=== PATIENT | female | born 1955 | race Caucasian/White ===

== ENCOUNTER → 2023-12-24 | Emergency (ER) | payer OTHER ==
[~2023-12-24] MED LIST: ACETAMINOPHEN 500 MG TAB ONE; MECLIZINE HCL 12.5 MG TAB ONE; TDAP (DIPHTH,PERTUSS(ACELL),TET VAC) 0.5 ML VIAL IMVAC ONE
--- NOTE | 2023-12-24 21:11 | RAD REPORT ---
EXAM DESCRIPTION: CT - Head C Spine Cap Wo Con - 12/24/2023 8:36 pm CLINICAL HISTORY: Head and neck injury with chest and abdominal pain status post fall TECHNIQUE: Computed axial tomography of head, neck, chest, abdomen and pelvis obtained. IV and oral contrast not requested. Coronal and sagittal reconstruction performed. All CT scans are performed using dose optimization technique as appropriate and may include automated exposure control or mA/KV adjustment according to patient size. COMPARISON: None FINDINGS: A right parietal scalp hematoma. An intracranial bleed is not seen. The ventricles are normal in caliber. An extra-axial fluid collection is not noted. Fluid within the sinuses/mastoids is not seen. A cervical fracture is not seen. No dislocation is noted. The evaluation of mediastinum, melani, vessels, solid organs and bowel are limited secondary to the lac k of contrast administration. A mediastinal hematoma is not noted. A pleural effusion is not seen. A lung contusion is not present. The liver,spleen, pancreas, adrenals,kidneys and bladder do not demonstrate an acute traumatic injury Small to moderate umbilical hernia IMPRESSION: No acute intracranial abnormality is seen. A cervical fracture is not visualized. If the patient continues to have symptoms to suggest intracran ial/spinal cord pathology MRI be recommended No acute traumatic abnormality involving the chest, abdomen or pelvis
--- NOTE | 2023-12-24 21:42 | EDPHYS ---
Physician Documentation [facility] Name: Georgia Dunn Age: 68 yrs Sex: Female : 1955 Arrival Date: 12/24/2023 Time: 18:57 Bed 11 Private MD: Jon Chao ED Physician Ronnie Lyles HPI: 12/23 20:05 This 68 yrs old Female presents to ER via Ambulatory with complaints of Head cp Injury-Adult. 20:05 The patient or guardian reports injury. cp 20:05 The complaints affect the right frontal area and right temporal area. cp 20:05 Context of injury: The problem was sustained at home, resulted from a fall, from a cp standing position. Onset: The symptoms/episode began/occurred 3 day(s) ago. Associated signs and symptoms: Pertinent positives: possible LOC and anterior chest pain. Historical: - Allergies: 19:07 No Known Allergies; km8 - Home Meds: 19:07 levothyroxine 100 mcg capsule [Active]; losartan-hydrochlorothiazide 100-25 mg oral km8 tablet [Active]; Vitamin D Oral [Active]; - PMHx: 19:07 Hypertensive disorder; Hypercholesterolemia; Hypothyroidism; km8 - PSHx: 19:07 Appendectomy; partial hysterectomy; Cholecystectomy; km8 - Immunization history:: Client reports receiving the 2nd dose of the Covid vaccine, Last tetanus immunization: unknown, Flu vaccine is up to date. - Social history:: Smoking status: Patient denies any tobacco usage or history of. Patient uses alcohol, on a daily basis. admits to "couple of beers" a day. Patient/guardian denies using street drugs. ROS: 20:10 Constitutional: Negative for body aches, fever, cp 20:10 Eyes: Negative for injury, pain, redness, and discharge, cp 20:10 Cardiovascular: Positive for chest pain, 20:10 Respiratory: Negative for shortness of breath, wheezing, 20:10 Abdomen/GI: Negative for abdominal pain, vomiting, diarrhea, constipation, 20:10 Neuro: Positive for dizziness, headache, Negative for altered mental status, weakness, 20:10 All other systems are negative, Exam: 20:15 Constitutional: The patient appears in no acute distress, alert, awake, cp non-diaphoretic, non-toxic, well developed, well nourished, obese, 20:15 Head/face: Noted is erythema, that is mild, of the right frontal area and right cp temporal area, swelling, that is mild, of the right frontal area and right temporal area, tenderness, scabbed over wound with no active bleeding noted. 20:15 Eyes: Periorbital structures: appear normal, Pupils: equal, round, and reactive to light and accomodation, Extraocular movements: intact throughout, Conjunctiva: normal, no exudate, no injection, Sclera: no appreciated abnormality, Lids and lashes: appear normal, bilaterally, 20:15 ENT: External ear(s): are unremarkable, Nose: is normal, Mouth: Lips: moist, Oral mucosa: pink and intact, moist, Posterior pharynx: is normal, airway is patent, no erythema, no exudate, 20:15 Neck: C-spine: vertebral tenderness, is not appreciated, crepitus, is not appreciated, ROM/movement: pain, that is mild, with any movement, limited range of motion, is not appreciated, Meningeal signs: are not present, nuchal rigidity, is not appreciated, 20:15 Chest/axilla: Inspection: normal, Palpation: crepitus, is not appreciated, tenderness, that is mild, of the anterior aspect of right upper chest, anterior aspect of left upper chest and mid-sternal area, 20:15 Cardiovascular: Rate: tachycardic, Rhythm: regular, Edema: is not appreciated, JVD: is not appreciated, 20:15 Respiratory: the patient does not display signs of respiratory distress, Respirations: normal, no use of accessory muscles, no retractions, labored breathing, is not present, Breath sounds: are clear throughout, no decreased breath sounds, no stridor, no wheezing, 20:15 Abdomen/GI: Inspection: abdomen appears normal, Palpation: abdomen is soft and non-tender, in all quadrants, 20:15 Back: vertebral tenderness, is not appreciated, 20:15 Musculoskeletal/extremity: Exam is negative for decreased range of motion, deformity, injury, 20:15 Neuro: Orientation: to person, place \\T\\ time. Mentation: is normal, Motor: is normal, Sensation: is normal, Gait: is steady, at a normal pace, without difficulty, Vital Signs: 19:06 BP 137 / 56; Pulse 113; Resp 18; Temp 98.5(O); Pulse Ox 91% on R/A; Weight 104.33 kg km8 (R); Height 5 ft. 1 in. (R); Pain 10/14; 21:51 BP 131 / 79; Pulse 98; Resp 18; Pulse Ox 100% on R/A; mb9 19:06 Body Mass Index 43.46 (104.33 kg, 154.94 cm) [facility] 19:06 Pain Scale: Adult 8 [place] Coma Score: 19:06 Eye Response: spontaneous(4). Motor Response: obeys commands(6). Verbal Response: km oriented(5). Total: 15. 20:05 Eye Response: spontaneous(4). Motor Response: obeys commands(6). Verbal Response: cp oriented(5). Total: 15. MDM: 19:13 Patient medically screened. cp 20:00 Differential diagnosis: Contusion of Hematoma on Laceration of Intracranial bleed- Concussion cerebral contusion, chest contusion, rib fracture. 21:40 Data reviewed: vital signs, nurses notes, radiologic studies, CT scan, and as a result, I will discharge patient. 21:40 I considered the following discharge prescriptions or medication management in the emergency department Medications were administered in the Emergency Department. See MAR. Counseling: I had a detailed discussion with the patient and/or guardian regarding the historical points, exam findings, and any diagnostic results supporting the discharge/admit diagnosis, radiology results, wound care. Special discussion: Based on the patient's history, exam, and Dx evaluation, there is no indication for emergent intervention or inpatient Tx. It is understood by the patient/guardian that if the Sx's persist or worsen they need to return immediately for re-evaluation. Based on the patient's history, exam and DX evaluation, there is no indication for emergent intervention or inpatient TX. It is understood by the patient/guardian that if the SXs persist or worsen they need to return immediately for re-evaluation. ED course: wound cleaned and dressed. will discharge to home for continued monitoring. 12/23 19:51 Order name: CT Traumagram (Head C Spine CAP wo con); Complete Time: 21:36 cp 12/23 21:37 Interpretation: Report reviewed. Administered Medications: 21:38 Drug: Tetanus Toxoid,Adsorbed IM 0.5 ml IM once; Provide Vaccine Information Statement jb4 (VIS). {Manager Shipping: [employer]; Exp: ThuOct 17 2025; Lot #: [id number]; Series: 1 of 1; Patient Consent: Obtained; Date/Time: ; Source Name: Georgia Dunn; Source Relationship: Self; Address Information: [place] [address]; ; Education: Provided; VIS Presented Date: ; VIS Publication: Tetanus/Diphtheria (Td) VIS 11/08/2013 (historic)} Route: IM; Site: right deltoid; 21:52 Follow up: Response: No adverse reaction mb9 21:38 Drug: Acetaminophen PO 1000 mg PO once Route: PO; jb4 21:52 Follow up: Response: No adverse reaction mb9 21:38 Drug: Meclizine PO 25 mg PO once Route: PO; jb4 21:52 Follow up: Response: No adverse reaction mb9 Disposition Summary: 12/24/23 21:41 Discharge Ordered Notes: Location: Home cp Problem: new cp Symptoms: have improved cp Condition: Stable cp Diagnosis - Fall on same level, unspecified cp - Unspecified open wound of scalp, initial encounter cp - Dizziness and giddiness cp - Chest pain, unspecified cp Followup: cp - With: Private Physician - When: 2 - 3 days - Reason: Worsening of condition Discharge Instructions: - Discharge Summary Sheet cp - Chest Wall Pain cp - Dizziness cp - Wound Infection cp - Wound Care, Adult cp Forms: - Medication Reconciliation Form cp - Thank You Letter cp - Antibiotic Education cp - Prescription Opioid Use cp - Patient Portal Instructions cp - Leadership Thank You Letter cp Prescriptions: - Cephalexin 500 mg Oral Capsule - take 1 capsule ORAL route every 8 hours for 10 days; 30 capsule; Refills: 0, cp Product Selection Permitted - Meclizine 25 mg Oral Tablet - take 1 tablet ORAL route every 8 hours As needed; 30 tablet; Refills: 0, cp Product Selection Permitted Signatures: Dispatcher [employer] EDRonnie Suero PA PA cp Bryson, James RN RN jb4 Maddie Zaldivar RN RN km8 Dahlia Andino RN mb9
--- NOTE | 2023-12-24 21:42 | ER ---
Nurse's Notes [facility] Name: Georgia Dunn Age: 68 yrs Sex: Female : 1955 Arrival Date: 12/24/2023 Time: 18:57 Bed 11 Private MD: Jon Chao Diagnosis: Fall on same level, unspecified;Unspecified open wound of scalp, initial encounter;Dizziness and giddiness;Chest pain, unspecified Presentation: 12/23 19:06 Chief complaint: Patient states: pt reports falling Thursday evening with unknown LOC, pt km8 noted to have a laceration to top right of head that is scabbing over with some "oozing still"; denies taking blood thinners. Coronavirus screen: Client denies travel out of the [place] in the last 14 days. Ebola Screen: No symptoms or risks identified at this time. Mechanism of Injury: resulted from a fall. Initial Sepsis Screen: Does the patient meet any 2 criteria? HR > 90 bpm. No. Patient's initial sepsis screen is negative. Does the patient have a suspected source of infection? No. Patient's initial sepsis screen is negative. Risk Assessment: Do you want to hurt yourself or someone else? Patient reports no desire to harm self or others. Onset of symptoms was December 21, 2023. 19:06 Method Of Arrival: Ambulatory km8 19:06 Acuity: DIMITRY 3 km8 Triage Assessment: 19:07 General: Appears in no apparent distress. comfortable, Behavior is calm, cooperative, km8 appropriate for age. Pain: Complains of pain in right frontal area Pain currently is 1 out of 10 on a pain scale. EENT: No signs and/or symptoms were reported regarding the EENT system. Neuro: Level of Consciousness is awake, alert, obeys commands, Oriented to person, place, time, situation, Reports dizziness. Cardiovascular: Denies chest pain, shortness of breath, Patient's skin is warm and dry. Respiratory: Airway is patent Respiratory effort is even, unlabored, Respiratory pattern is regular, symmetrical. GI: No signs and/or symptoms were reported involving the gastrointestinal system. : No signs and/or symptoms were reported regarding the genitourinary system. Derm: Skin is healthy with good turgor, Skin is dry, Skin is normal, Skin temperature is warm Wound noted right temporal area Wound is laceration. Musculoskeletal: No signs and/or symptoms reported regarding the musculoskeletal system. Range of motion: intact in all extremities. 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 - Social history:: Smoking status: Patient denies any tobacco usage or history of. Patient uses alcohol, on a daily basis. admits to "couple of beers" a day. Patient/guardian denies using street drugs. Screenin:[facility] ED Fall Risk Assessment (Adult) History of falling in the last 3 months, mb9 including since admission Yes- single mechanical fall (1 pt) Confusion or Disorientation No (0 pts) Intoxicated or Sedated No (0 pts) Impaired Gait No (0 pts) Mobility Assist Device Used No (0 pt) Altered Elimination No (0 pt) Score/Fall Risk Level 0 - 2 = Low Risk Oriented to surroundings, Maintained a safe environment, Educated pt \\T\\ family on fall prevention, incl call for assistance when getting out of bed. Abuse screen: Denies threats or abuse. Nutritional screening: No deficits noted. Tuberculosis screening: No symptoms or risk factors identified. Assessment: 21:50 General: Appears in no apparent distress. Behavior is calm, cooperative. Pain: mb9 Complains of pain in scalp. Neuro: Garcia Agitation-Sedation Scale (RASS): 0 - Alert and Calm Level of Consciousness is awake, alert, obeys commands, Oriented to person, place, time, situation, Appropriate for age. Neuro: Reports dizziness. Cardiovascular: Patient's skin is warm and dry. Respiratory: Airway is patent Respiratory effort is even, unlabored, Respiratory pattern is regular, symmetrical, Breath sounds are clear bilaterally. GI: No signs and/or symptoms were reported involving the gastrointestinal system. : No signs and/or symptoms were reported regarding the genitourinary system. EENT: No signs and/or symptoms were reported regarding the EENT system. Derm: Skin is pink, warm \\T\\ dry. Musculoskeletal: Range of motion: intact in all extremities. Injury Description: Abrasion sustained to scalp. Vital Signs: 19:06 BP 137 / 56; Pulse 113; Resp 18; Temp 98.5(O); Pulse Ox 91% on R/A; Weight 104.33 kg km8 (R); Height 5 ft. 1 in. (R); Pain 1/10; 21:51 BP 131 / 79; Pulse 98; Resp 18; Pulse Ox 100% on R/A; mb9 19:06 Body Mass Index 43.46 (104.33 kg, 154.94 cm) km8 19:06 Pain Scale: Adult km8 [place] Coma Score: 19:06 Eye Response: spontaneous(4). Motor Response: obeys commands(6). Verbal Response: km8 oriented(5). Total: 15. 20:05 Eye Response: spontaneous(4). Motor Response: obeys commands(6). Verbal Response: cp oriented(5). Total: 15. ED Course: 18:59 Patient arrived in ED. mr 19:00 Jon Chao MD is Private Physician. mr 19:07 Triage completed. km8 19:07 Arm band placed on right wrist. km8 19:10 Patient placed in waiting room, Patient notified of wait time. km8 19:13 Ronnie Su PA is PHCP. cp 19:13 Ronnie Lyles MD is Attending Physician. cp 20:37 CT Traumagram (Head C Spine CAP wo con) In Process Unspecified. EDMS 21:51 Patient has correct armband on for positive identification. Provided Education on: mb9 medications given. 21:51 No provider procedures requiring assistance completed. Patient did not have IV access mb9 during this emergency room visit. Administered Medications: 21:38 Drug: Tetanus Toxoid,Adsorbed IM 0.5 ml IM once; Provide Vaccine Information Statement jb4 (VIS). {Tube Maker: [employer]; Exp: ThuOct 17 2025; Lot #: [id number]; Series: 1 of ; Patient Consent: Obtained; Date/Time: ; Source Name: Georgia Dunn; Source Relationship: Self; Address Information: [address] [place], [place] [address] [address]; ; Education: Provided; VIS Presented Date: ; VIS Publication: Tetanus/Diphtheria (Td) VIS 11/08/2013 (historic)} Route: IM; Site: right deltoid; 21:52 Follow up: Response: No adverse reaction mb9 21:38 Drug: Acetaminophen PO 1000 mg PO once Route: PO; jb4 21:52 Follow up: Response: No adverse reaction mb9 21:38 Drug: Meclizine PO 25 mg PO once Route: PO; jb4 21:52 Follow up: Response: No adverse reaction mb9 Medication: 21:51 VIS not applicable for this client. mb9 Outcome: 21:41 Discharge ordered by MD. cp 21:51 Discharged to home ambulatory, mb9 21:51 Condition: stable 21:51 Discharge instructions given to patient, Instructed on discharge instructions, follow up and referral plans. Demonstrated understanding of instructions, follow-up care, medications, Prescriptions given X 2, 21:52 Patient left the ED. mb9 Signatures: Dispatcher [employer] EDMS Dahlia Montez, Ronnie De La Cruz PA PA cp Bryson, James, RN RN jb4 Dahlia Andino, RN RN mb9 Maddie Zaldivar RN RN km8
[2023-12-24 23:01] VITALS: BP 131/79; TEMP 98.5; O2SAT 100
== END ==
LOC: ER 18:57
DX: S01.00XA Unspecified open wound of scalp, initial encounter (principal); R07.9 Chest pain, unspecified; R42 Dizziness and giddiness; W18.30XA Fall on same level, unspecified, initial encounter; Z23 Encounter for immunization
CPT/HCPCS: 70450; 71250; 72125; 90471; 99284; J8597

== ENCOUNTER → 2024-01-26 | Day surgery (SDC) | payer OTHER ==
--- NOTE | 2024-01-26 13:27 | RAD REPORT ---
EXAM DESCRIPTION: US - Guided FNA Non Breast - 01/26/2024 10:31 am CLINICAL HISTORY: E04.1 COMPARISON: No comparisons FINDINGS: Preoperative diagnosis: Right thyroid nodule. Post operative diagnosis: Same. Conscious Sedation: None Fluoroscopy time: None Contrast used: None Estimated blood loss: Minimal Specimens:See below Informed consent was obtained following discussion of the relevant risks and benefits with the patien t. Time-out procedure was performed. The anterior neck was prepped and draped in the usual sterile fa shion. 1% lidocaine was infiltrated into the subcutaneous tissues for local anesthesia. Real time ult rasound scanning of the right thyroid lobe demonstrated a dominant peripheral hypoechoic 2 cm nodule with few calcifications. Under ultrasound guidance, using a variety of long and short 25 gauge needle s, 6 fine-needle aspiration passes were obtained of this lesion and sent to pathology for evaluation. A small volume of serosanguineous fluid was also aspirated and sent. There were no complications. IMPRESSION: Successful ultrasound-guided right thyroid nodule fine needle aspiration biopsy/ cytolog y.
== END ==
LOC: FNA 09:27
PROVIDERS: ATTEND Internal Medicine
PROC: 0GBH3ZX Excision of Right Thyroid Gland Lobe, Percutaneous Approach, Diagnostic (ICD-10-PCS; principal; 2024-01-26)
DX: E04.1 Nontoxic single thyroid nodule (principal)
CPT/HCPCS: 88162; 88305

== ENCOUNTER 2024-03-24 07:22 | Inpatient (IN) | payer OTHER ==
[2024-03-21 12:05] LABS: Absolute Basophils 0.1 K/uL (0-0.5); Absolute Eosinophils 0.3 K/uL (0-0.5); Absolute Lymphocytes (CBC) 2.1 K/uL (0.7-4.9); Absolute Monocytes 0.8 K/uL (0.1-1.3); Basophils % 1.3 % (0-1.3); Eosinophils % 2.8 % (0-4.4); Hematocrit 44.1 % (36.0-45.0); Hemoglobin 14.7 g/dL (12.0-15.0); Lymphocytes % 22.4 % (15.3-44.8); MCH 32.9 pg (27.0-35.0); MCHC 33.5 g/dL (32.0-36.0); MCV 98.3 fL (80-100); MPV 9.4 fL (7.6-11.3); Neutrophils % 64.5 % (41.7-73.7); Platelets 335 thou/uL (152-406); RBC Red Blood Cell Count 4.49 M/uL (3.86-4.86); Red Cell Distribution Width 15.2 % (12.1-15.2)
[2024-03-21 13:58] LABS: Anion Gap 8.4 mEq/L (5.0-15.0); Potassium 3.4 mEq/L (3.5-5.1)
--- NOTE | 2024-03-22 14:18 | EKG ---
Test Date: 2024-03-21 Test Time: 09:35:35 Athletic Coach: PREO MEASUREMENT RESULTS: Intervals: Rate: 91 CA: 154 QRSD: 80 QT: 360 QTc: 442 Arabi: P: 60 CA: 154 QRS: 73 T: 30 INTERPRETIVE STATEMENTS: Normal sinus rhythm ST abnormality, possible digitalis effect Abnormal ECG No previous ECG available for comparison Electronically Signed On 03-22-24 14:13:06 CDT by Alonso Barraza
[2024-03-24] MEDS ORDERED: CEFAZOLIN SODIUM 2 GM/VIAL ONE (07:41)
[2024-03-24] MEDS ORDERED: Ringers Lactate 1,000 ML IV ONE (07:42)
[2024-03-24] MEDS ORDERED: LIDOCAINE 1% MPF 30 ML VIAL ONE (07:45)
[2024-03-24] MEDS ORDERED: FENTANYL CITR 100 MCG/2 ML ONE ×3 (08:00→09:45)
[2024-03-24] MEDS ORDERED: ONDANSETRON 4 MG/2 ML VIAL ONE (08:00)
[2024-03-24] MEDS ORDERED: propofoL 200 MG/20 ML VIAL IV ONE (08:00)
[2024-03-24] MEDS ORDERED: LIDOCAINE 1% MPF 5 ML VIAL ONE (08:00)
[2024-03-24] MEDS ORDERED: MIDAZOLAM HCL 2 MG/2 ML INJ ONE ×2 (08:00→08:33)
[2024-03-24] MEDS: SUCCINYLCHOLINE 20 MG/ML (10 ML) IV ONE (08:39)
[2024-03-24] MEDS: CEFAZOLIN SODIUM 2 GM/VIAL IJ ONE (08:52)
[2024-03-24] MEDS: LIDOCAINE HCL/EPINEPHRINE 20 ML MDV ONE (09:05)
[2024-03-24] MEDS ORDERED: KETOROLAC 30 MG/ML INJ ONE (09:17)
[2024-03-24] MEDS ORDERED: dexAMETHasone 10 MG/ML VIAL ONE (09:17)
[2024-03-24] MEDS ORDERED: Phenylephrine HCl 10 MG/ML 1 ML VIAL ONE (09:41)
[2024-03-24] MEDS ORDERED: NS 0.9% VIAL 10 ML ONE ×4 (09:41→13:34)
[2024-03-24] MEDS ORDERED: Mastisol Adhesive Liq ONE (12:57)
[2024-03-24] MEDS: CEFAZOLIN SODIUM 1 GM/VIAL ONE (13:37)
[2024-03-24] MEDS ORDERED: MORPHINE 4 MG/ML SYR IV PRN (13:48)
[2024-03-24] MEDS ORDERED: ACETAMINOPHEN 325 MG TABLET PO PRN (13:51)
[2024-03-24] MEDS: LEVOTHYROXINE SOD 0.088 MG TAB PO SCH (14:20)
[2024-03-24 14:53] VITALS: BMI 41.5
[2024-03-24] MEDS: ACETAMINOPHEN 325 MG TABLET PO PRN (15:40)
[2024-03-24] MEDS ORDERED: HYDRALAZINE HCL 20 MG/ML VIAL IV PRN (15:51)
--- NOTE | 2024-03-24 15:57 | P.CNS ---
Date of Consult: 03/24/24 Reason for Consult: Medical mgmt Requesting Physician: Marla Baez Chief Complaint: Thyroid nodule History of Present Illness: 68-year-old female with history of hypothyroidism, hypertension was brought into the hospital for a total thyroidectomy. She had a fall about 3 months ago and on imaging it was noted that she had a thyroid nodule, further testing warranted thyroidectomy which was performed today. Patient seen in the ICU doing well postoperatively with AARON drain in place, only medical history is hypothyroidism and hypertension. Allergies No Known Allergies Allergy (Verified 03/24/24 08:30) Home Medications: Levothyroxine [Synthroid] 100 mcg PO [id number] 03/21/24 Losartan/Hydrochlorothiazide [Losartan-Hctz 100-25 mg Tab] 1 each PO DAILY 03/21/24 Vitamin D [Drisdol] 50,000 unit PO EVERY 7TH DAY 03/21/24 - Past Medical/Surgical History -: HTN -: Hypothyroid -: appendectomy -: partial hysterectomy -: colleen -: total thyroidectomy Psychosocial/ Personal History: Lives at home with family - Social History Alcohol use: Yes CD- Drugs: No Caffeine use: No Place of Residence: Home Review of Systems 10-point ROS is otherwise unremarkable ENT: Other (Neck pain) Physical Examination Temp Pulse Resp BP Pulse Ox 97.8 F 91 H 25 H 134/85 97 03/24/24 14:45 03/24/24 15:30 03/24/24 15:30 03/24/24 15:30 03/24/24 15:30 General: Alert, In no apparent distress, Oriented x3 HEENT: Atraumatic, PERRLA, EOMI Neck: Supple, 2+ carotid pulse no bruit, No LAD, Other (AARON drain in place, small amt blood in drain) Respiratory: Clear to auscultation bilaterally, Normal air movement Cardiovascular: Regular rate/rhythm, Normal S1 S2 Gastrointestinal: Normal bowel sounds, No tenderness Musculoskeletal: No tenderness Integumentary: No rashes Neurological: Normal gait, Normal speech, Normal tone Conclusions/Impression: Assessment: Thyroid mass S/P total thyroidectomy 03/24 with history of hypothyroidism Hypertension Plan: Thyroid mass S/P total thyroidectomy 03/24 with history of hypothyroidism AARON drain in place, small amount of blood present in drain ENT following As needed pain medication Clear liquid diet advance as tolerated Order in place for levothyroxine Hypertension Home medication resumed DVT PPX: SCD Code status: Full Critical Care: No Time Spent Managing Pts care (In Minutes): 35
[2024-03-24] MEDS: Ringers Lactate 1,000 ML IV SCH (16:00)
[2024-03-24] MEDS: CEFAZOLIN SODIUM 2 GM in NA CHLORIDE 0.9% 100 ML IVPB SCH (20:37)
[2024-03-25 04:57] LABS: Hematocrit 38.5 % (36.0-45.0); Hemoglobin 12.6 g/dL (12.0-15.0); MCH 31.8 pg (27.0-35.0); MCHC 32.6 g/dL (32.0-36.0); MCV 97.5 fL (80-100); MPV 9.1 fL (7.6-11.3); Platelets 271 thou/uL (152-406); RBC Red Blood Cell Count 3.94 M/uL (3.86-4.86); Red Cell Distribution Width 15.4 % (12.1-15.2)
[2024-03-25 05:12] LABS: Anion Gap 6.7 mEq/L (5.0-15.0); Potassium 3.7 mEq/L (3.5-5.1)
[2024-03-25] MEDS: LOSARTAN POTASSIUM 50 MG TABLET PO SCH (07:54)
[2024-03-25] MEDS: hydroCHLOROthiazide 25 MG TAB PO SCH (07:54)
[2024-03-25 09:06] VITALS: O2SAT 98
--- NOTE | 2024-03-25 09:48 | P.PN ---
Date of Service: 03/25/24 Subjective: No acute events overnight Ambulatory to restroom x 4 No complaints today ROS: 10 point ROS as noted above, otherwise negative Physical exam GEN: Alert, oriented, NAD HEENT: Normal conjunctiva, sclera anicteric, AARON drain in place to anterior neck with small amount of blood CV: Regular rate and rhythm, no edema Pulm: Nonlabored respirations on room air ABD: Soft, nontender, nondistended MSK: No joint tenderness Integumentary: No rashes Neuro: Normal speech, normal affect Vitals reviewed Plan: Thyroid mass S/P total thyroidectomy 03/24 with history of hypothyroidism AARON drain in place, 40ml out overnight ENT following As needed pain medication Clear liquid diet advance as tolerated Order in place for levothyroxine Has been ambulatory, doing well Hypertension Home medication resumed LIZBETH Present on admission Unknown renal function baseline Improved with IV fluids Counseled on need for follow-up with PCP, avoidance of NSAIDs VTE: SCD Code: Full Dispo: 24 to 48 hours Time Spent Managing Pts Care (In Minutes): 35
[2024-03-25 12:22] VITALS: BP 126/87; TEMP 98.1
--- NOTE | 2024-03-28 20:46 | OP ---
Date of Procedure: 03/24/2024 Surgeon: JESSIE PHIPPS Preoperative Diagnosis: Right thyroid follicular neoplasm, uncertain behavior. Postoperative Diagnosis: Right thyroid follicular neoplasm, uncertain behavior. Procedure: Total thyroidectomy with recurrent laryngeal nerve monitoring with the [employer] nerve in tegrity monitoring system. Anesthesia: General NIMS endotracheal tube anesthesia administered. Approximately 10 mL of 1% lidoc natasha with 1:100,000 epinephrine was infiltrated over the horizontal incision site. Specimens: Bilateral thyroid lobes and isthmus sent to pathology for evaluation. Estimated Blood Loss: Approximately 50 mL. Complications: None. Disposition: Stable. The patient tolerated the procedure well. Indication For Procedure: The patient is a pleasant 68-year-old female, [facility] a fine needle aspiration of right thyroid neoplasm, which was sent off to [facility] for immunostaining and results came back, follicular neoplasm with 50% probability of carcinom a. We discussed right thyroid lobectomy with possible completion thyroidectomy if the specimen was p ositive for follicular carcinoma versus complete total thyroidectomy initially. She opted for comple te total thyroidectomy initially and thus all risks and benefits were discussed in detail. The [facility]'s consent form was signed and placed in the chart. Description Of Procedure: The patient was transferred from the preoperative holding area to the oper ative suite by Department of Anesthesia, placed on the operative table supine, sedated and intubated in normal fashion. The grounding electrodes were placed on the right shoulder and calibrated to the machine and she was functioning appropriately. The patient was then sterilely prepped and draped aft er I infiltrated approximately 10 mL of 1% lidocaine with 1:100,000 epinephrine at the horizontal inc ision site approximately 2 cm above the sternal notch. A horizontal incision was made approximately 2 cm above the sternal notch and the incision was approx imately 5 cm in length. I started dissecting on the right. Thus, I made the initial incision with a #15 blade scalpel down to the subcutaneous tissue and then switched to monopolar electrocautery on t he setting of 20 for coagulation down to the platysma. Platysma was then divided with LigaSure and t hen I dissected down to the strap muscles and the midline fascia was located between the strap muscle s and I dissected through the midline down to the thyroid fascia. I dissected around the right thyro id lobe starting superiorly and then dissecting inferiorly. A right inferior pole parathyroid was lo cated and this was preserved. The thyroid lobe was large and friable and appeared that there was mus cait invasion medially. Once down to the point of Davey's ligament, I decided to remove the right thy roid lobe completely. I then turned my attention to the left thyroid lobe which was dissected along the lateral border from inferior to superior. I was able to locate left superior and left inferior p arathyroid glands and these were preserved. There was also vessel invasion noted and a large cyst th at was located in the superior pole. I then dissected medially to Davey's ligament and removed the l eft thyroid lobe. I then removed the isthmus separately with the LigaSure. The wound cavity was irr igated with saline. All areas were checked for hemostasis, and hemostasis was achieved. A dry Valsa lva was performed and there was no evidence of oozing. Avitene was placed into the wound cavity and then I reapproximated the platysma muscles leaving the straps open due to being moderate oozing of bl ood throughout the case and the evidence of vascular invasion. I then placed a small Jag-Logan d rain between the platysma and the epidermal layer and this was sutured into place with 4-0 nylon sutu re. I then reapproximated the subcutaneous dermal and epidermis in an interrupted fashion with 4-0 M onocryl in subcuticular fashion with 4-0 Monocryl. A light dressing was placed. The patient tolerat ed the procedure well. Due to the length of the case, the patient was admitted to the floor for obse rvation. Her voice was excellent quality postsurgically. She was discharged home the following day. She tolerated the procedure well. She will follow up in 3 days for drain removal. She will also s tart oral antibiotics outpatient and if she did not require any narcotic medication, will take Tylenol or ibuprofen for pain. [id number]/[id number] Voice ID: [id number] Report ID: [id number]
== END 2024-03-25 14:12 | disposition home or self-care (01) | DRG 626 ==
LOC: OR 07:22 → 3RD-ICU 13:30
PROVIDERS: ADMIT Otolaryngology Facial Plastic Surgery; ATTEND Otolaryngology Facial Plastic Surgery
PROC: 0GTH0ZZ Resection of Right Thyroid Gland Lobe, Open Approach (ICD-10-PCS; 2024-03-24)
PROC: 0GTG0ZZ Resection of Left Thyroid Gland Lobe, Open Approach (ICD-10-PCS; principal; 2024-03-24 08:30)
DX: D44.0 Neoplasm of uncertain behavior of thyroid gland (principal); N17.9 Acute kidney failure, unspecified; E03.9 Hypothyroidism, unspecified; I10 Essential (primary) hypertension; Z90.49 Acquired absence of other specified parts of digestive tract; Z79.890 Hormone replacement therapy; Z79.899 Other long term (current) drug therapy; Z90.711 Acquired absence of uterus with remaining cervical stump
CPT/HCPCS: 36415; 80048; 82310; 85025; 85027; 88305; 88307; 93005; A4216; J0690; J1100; J2001; J2250; J2371; J2405; J2704; J3010; J7120